=== PATIENT | male | born 1935 | race Caucasian/White ===

== ENCOUNTER 2017-06-17 21:32 | Emergency (ER) | payer OTHER ==
[~2017-06-17] VITALS: Ht 185.4 cm; Wt 77.0 kg
[~2017-06-17 21:32] MED LIST: ATOR20TA PO; CORE25TA PO; COUM6TAB PO; HYDR-3129 PO; LASI20TA PO; LEVA500T PO; OMEP20TA PO; POTA-267 PO; SYMB80AE INH; TAB-TAB PO; THEO200T27 PO
[2017-06-17 21:40] VITALS: PULSE 93; RESP 20; TEMP 98.4; O2SAT 93
[2017-06-17] MEDS ORDERED: FURO40TA PO (21:52)
[2017-06-17] MEDS ORDERED: POTA10CA PO (21:52)
[2017-06-17] MEDS ORDERED: ATOR40TA16 PO (21:52)
[2017-06-17] MEDS ORDERED: WARF-18 PO (21:52)
[2017-06-17] MEDS ORDERED: OMEP20TA PO (21:52)
[2017-06-17] MEDS ORDERED: CARV12.52 PO (21:52)
[2017-06-17] MEDS ORDERED: MULT-267 (21:52)
[2017-06-17] MEDS ORDERED: WARF4TAB52 PO (21:52)
[2017-06-17] MEDS ORDERED: CALC1TAB12 PO (21:52)
[2017-06-17] MEDS ORDERED: THEO400T2 PO (21:52)
--- NOTE | 2017-06-17 21:57 | PD ---
HPI Chief Complaint: Fall Time Seen by Provider: 21:43 Travel History International Travel<30 days: No Contact w/Intl Traveler<30days: No Traveled to known affect area: No History of Present Illness HPI 81-year-old male complains of right shoulder pain. Patient states that he tripped and fell on the right shoulder this evening. Patient denies any headache. Patient denies any head injury. Patient denies any neck pain. Patient denies any chest pain or shortness of breath. Patient denies abdominal pain. Patient denies any extremity injury. Patient denies any focal weakness or numbness of extremity. Patient is on Coumadin. Patient states that INR was checked last week and was within good range PFSH Past Medical History Arthritis: Yes Asthma: No Depression: Yes Heart Rhythm Problems: Yes Cancer: No Cardiovascular Problems: Yes High Cholesterol: Yes Chemotherapy: No Chest Pain: No Congestive Heart Failure: Yes COPD: Yes Cerebrovascular Accident: No Coronary Artery Disease: Yes Diabetes: No Diminished Hearing: Yes Endocrine: No Gastrointestinal Disorders: No Genitourinary: No Hypertension: Yes Immune Disorder: No Implanted Vascular Access Dvce: Yes Kidney Stones: No Musculoskeletal: Yes Neurologic: No Psychiatric: No Reproductive: No Respiratory: Yes (SOB UPON EXERTION) Migraines: No Radiation Therapy: No Renal Failure: No Seizures: No Sickle Cell Disease: No Sleep Apnea: No Thyroid Disease: No Past Surgical History Abdominal Surgery: No AICD: Yes Body Medical Devices: WIRE IN CHEST FROM CABG Cardiac Surgery: Yes (CABG, PACEMAKER/AICD [facility]) Coronary Artery Bypass Graft: Yes (1989) Ear Surgery: No Endocrine Surgery: No Eye Surgery: Yes (BILATERAL PHACO) Genitourinary Surgery: No Gynecologic Surgery: No Insulin Pump: No Joint Replacement: Yes (BILATERAL HIP REPLACEMENT X 3) Oral Surgery: No Pacemaker: Yes Thoracic Surgery: No Tonsillectomy: Yes Other Surgery: Yes (BILAT. HIP REPLACEMENTS) Social History Alcohol Use: Yes (WINE) Tobacco Use: No Substance Use: No Allergies-Medications (Allergen,Severity, Reaction): Coded Allergies: Penicillin (Verified Allergy, Severe, 06/17/17) Reported Meds & Prescriptions Reported Meds & Active Scripts Active [place] (Hydrocodone-Acetaminophen) 5-325 mg Tab 1 Tab PO Q6H PRN Reported Omeprazole 20 Mg Tab 20 Mg PO DAILY Men's Multi-Vitamin (Multivitamin) 1 Each Tablet Calcium 500 +D (Calcium Carbonate-Cholecalciferol) 500-400 Mg-Unit Tab 1 Tab PO BID Potassium Chloride ER (Potassium Chloride) 10 Meq Cap 10 Meq PO DAILY Furosemide 40 Mg Tab 40 Mg PO DAILY Theophylline ER 24 HR (Theophylline) 400 Mg Tab 400 Mg PO DAILY Atorvastatin (Atorvastatin Calcium) 40 Mg Tab 40 Mg PO HS Carvedilol 12.5 Mg Tab 12.5 Mg PO BID Warfarin 2.5 Mg Tab 2.5 Mg PO DAILY Warfarin 1 Mg Tab 1 Mg PO DAILY Review of Systems General / Constitutional: No: Fever Eyes: No: Visual changes HENT: No: Headaches Cardiovascular: No: Chest Pain or Discomfort Respiratory: No: Shortness of Breath Gastrointestinal: No: Abdominal Pain Genitourinary: No: Dysuria Musculoskeletal: Positive: Pain Skin: No Rash Neurologic: No: Weakness Psychiatric: No: Depression Endocrine: No: Polydipsia Hematologic/Lymphatic: No: Easy Bruising Physical Exam Narrative GENERAL: Well-nourished, well-developed patient. SKIN: Focused skin assessment warm/dry. HEAD: Normocephalic. EYES: No scleral icterus. No injection or drainage. NECK: Supple, trachea midline. No JVD or lymphadenopathy. CARDIOVASCULAR: Regular rate and rhythm without murmurs, gallops, or rubs. RESPIRATORY: Breath sounds equal bilaterally. No accessory muscle use. GASTROINTESTINAL: Abdomen soft, non-tender, nondistended. MUSCULOSKELETAL: Patient has soft tissue swelling with moderate tenderness diffuse over the right shoulder joint. Limited range of motion the right shoulder secondary to pain. Sensory motor function distally intact. BACK: Nontender without obvious deformity. No CVA tenderness. Neurologic exam: Patient's awake and alert oriented 3. No obvious focal neurological deficit. Data Data Last Documented VS Vital Signs Date Time Temp Pulse Resp B/P Pulse Ox O2 Delivery O2 Flow Rate FiO2 06/17/17 21:40 98.4 93 20 93 Orders Shoulder, Limited(2vws) (06/17/17 21:47) Splint Or Brace Apply/Monitor (06/17/17 22:42) MDM Medical Decision Making Medical Screen Exam Complete: Yes Emergency Medical Condition: Yes Interpretation(s) 20 2:39 PM. X-ray right shoulder show fracture surgical neck humerus and possible involvement a greater tuberosity. Fracture lateral right ninth rib. Differential Diagnosis Differential diagnosis including contusion, fracture, dislocation. Narrative Course 81-year-old male complains of right shoulder pain. Status post fall. X-ray shows fracture right ninth rib however on examination patient has no chest wall pain on palpation. No crepitus and no signs of pneumothorax. [id number] applied. Diagnosis Primary Impression: Fracture of right humerus Qualified Code: S42.224A - Closed 2-part nondisplaced fracture of surgical neck of right humerus, initial encounter Additional Impression: Fracture, rib Qualified Code: S22.31XA - Closed fracture of one rib of right side, initial encounter Patient Instructions: General Instructions Additional Instructions: [id number] applied daily. Take medication as needed for pain. Follow-up with an orthopedist. Take stool softener with pain medication. Med/Other Pt SpecificInfo: Prescription(s) given Scripts Hydrocodone-Acetaminophen ([place])5-325 mg Tab1 Tab PO Q6H PRN (PAIN) #30 TAB Ref 0 Prov:Curtis Dove MD 06/17/17 Disposition: 01 DISCHARGE HOME Condition: Stable Curtis Dove MD Jun 17, 2017 21:57
--- NOTE | 2017-06-17 22:32 | RADRPT ---
EXAM DATE/TIME: 06/17/2017 21:50 [facility] COMPARISON: No previous studies available for comparison. INDICATIONS : Fall on right shoulder. MEDICAL HISTORY : None. SURGICAL HISTORY : None. ENCOUNTER: Initial ACUITY: 1 day PAIN SCORE: 10/10 LOCATION: Right shoulder FINDINGS: 2 view examination of the right shoulder demonstrates a fracture through the surgical neck of the pro ximal humerus with mild posterior angulation. Possible associated fracture of the greater tuberosity . The glenoid appears intact. A.c. joint is intact. Possible fracture of the lateral 9th rib CONCLUSION: 1. Fracture of the surgical neck of the humerus and possible involvement of the greater tuberosity. 2. Fracture lateral right 9th rib. Isai Penaloza MD on June 17, 2017 at 22:28 Board Certified Radiologist. This report was verified electronically.
[2017-06-17] MEDS ORDERED: NORC5TAB PO (22:44)
[2017-06-17] MEDS ORDERED: ACETAMINOPHEN/HYDROcodone 325 MG/5 MG TAB PO ONE (23:00)
== END 2017-06-17 23:30 | disposition home or self-care (01) ==
LOC: NEPC 21:32
DX: S42.224A 2-part nondisplaced fracture of surgical neck of right humerus, initial encounter for closed fracture (principal); S22.31XA Fracture of one rib, right side, initial encounter for closed fracture; I10 Essential (primary) hypertension; E78.00 Pure hypercholesterolemia, unspecified; H91.90 Unspecified hearing loss, unspecified ear; Z79.01 Long term (current) use of anticoagulants; Z87.39 Personal history of other diseases of the musculoskeletal system and connective tissue; Z86.79 Personal history of other diseases of the circulatory system; Z87.09 Personal history of other diseases of the respiratory system; W01.0XXA Fall on same level from slipping, tripping and stumbling without subsequent striking against object, initial encounter
CPT/HCPCS: 29240; 73030